=== PATIENT | female | born 2000 ===

== ENCOUNTER → 2018-04-08 | Outpatient (CLI) | payer OTHER ==
[2018-04-09 10:45] LABS: Candida species (DNA Probe) Negative (NEGATIVE); G. vaginalis (DNA Probe) Positive (NEGATIVE); T. vaginalis (DNA Probe) Negative (NEGATIVE)
[2018-04-11 00:10] LABS: CHLAMYDIA TRACHOMATIS, NAA Negative (Negative); NEISSERIA GONORRHOEAE, NAA Negative (Negative)
== END | disposition home or self-care (01) ==
LOC: LAB SHORT 17:30 → LAB EV 17:30
PROVIDERS: Physician Assistant
DX: N93.9 Abnormal uterine and vaginal bleeding, unspecified (principal)
CPT/HCPCS: 87480; 87491; 87510; 87591; 87660

== ENCOUNTER → 2018-09-28 | Outpatient (CLI) | payer OTHER | LOC: LAB 18:52 → LAB SHORT 18:52 | DX: N94.11 Superficial (introital) dyspareunia (principal) | CPT/HCPCS: 87070; 87205 ==

== ENCOUNTER → 2018-11-12 | Outpatient (CLI) | payer OTHER ==
[2018-11-13 07:02] LABS: Candida species (DNA Probe) Negative (NEGATIVE); G. vaginalis (DNA Probe) Negative (NEGATIVE); T. vaginalis (DNA Probe) Negative (NEGATIVE)
== END ==
LOC: LAB SHORT 17:59 → LAB 17:59
PROVIDERS: Registered Nurse Community Health
DX: N94.10 Unspecified dyspareunia (principal); N89.8 Other specified noninflammatory disorders of vagina; R10.2 Pelvic and perineal pain; Z91.410 Personal history of adult physical and sexual abuse
CPT/HCPCS: 87480; 87510; 87660

== ENCOUNTER → 2019-02-09 | Outpatient (CLI) | payer OTHER | LOC: LAB 19:25 → LAB SHORT 19:25 | DX: L02.214 Cutaneous abscess of groin (principal) | CPT/HCPCS: 87070; 87075; 87205 ==

== ENCOUNTER → 2022-08-06 | Outpatient (CLI) | payer OTHER ==
[2022-08-09 02:09] LABS: CHLAMYDIA TRACHOMATIS, NAA Negative (Negative)
== END | disposition home or self-care (01) ==
LOC: LAB SHORT 12:00 → LAB 12:00
PROVIDERS: Registered Nurse Community Health
DX: Z34.81 Encounter for supervision of other normal pregnancy, first trimester (principal)
CPT/HCPCS: 87491; 87591; G0145

== ENCOUNTER → 2022-12-11 | Outpatient (CLI) | payer OTHER ==
[2022-12-11 14:21] LABS: Hematocrit 33.9 % (33.0-51.0); Hemoglobin 11.7 g/dL (11.5-16.0)
== END | disposition home or self-care (01) ==
LOC: LAB 12:47 → LAB SHORT 12:47
PROVIDERS: Registered Nurse Community Health
DX: Z34.82 Encounter for supervision of other normal pregnancy, second trimester (principal)
CPT/HCPCS: 82950; 85014; 85018

== ENCOUNTER → 2023-02-05 | Outpatient (CLI) | payer OTHER | END | disposition home or self-care (01) | LOC: LAB SHORT 10:45 → LAB 10:45 | DX: Z34.93 Encounter for supervision of normal pregnancy, unspecified, third trimester (principal) | CPT/HCPCS: 87081; 87150 ==

== ENCOUNTER 2023-02-20 23:50 | Inpatient (IN) | payer OTHER ==
[~2023-02-20] VITALS: Ht 157.5 cm; Wt 75.0 kg
[2023-02-21] VITALS (34 sets, daily range): BP systolic 97–152; BP diastolic 55–85
[2023-02-21 03:15] LABS: BASOPHILS ABSOLUTE AUTO 0.05 K/mm3 (0.00-0.23); BASOPHILS PERCENT AUTO 0 % (0-2); EOSINOPHILS ABSOLUTE AUTO 0.26 K/mm3 (0.00-0.68); EOSINOPHILS PERCENT AUTO 2 % (0-6); Hematocrit 30.1 % (33.0-51.0); Hemoglobin 10.3 g/dL (11.5-16.0); IMMATURE GRAN ABSOLUTE AUTO 0.21 K/mm3 (0.00-0.10); IMMATURE GRAN PERCENT AUTO 2 % (0-1); LYMPHOCYTES ABSOLUTE AUTO 1.87 K/mm3 (0.84-5.20); LYMPHOCYTES PERCENT AUTO 16 % (21-46); MONOCYTES ABSOLUTE AUTO 0.76 K/mm3 (0.16-1.47); MONOCYTES PERCENT AUTO 6 % (4-13); Mean Corpuscular HGB 30.6 pg (26.0-34.0); Mean Corpuscular HGB Conc 34.2 g/dL (31.5-36.5); Mean Corpuscular Volume 89 fL (80-100); Mean Platelet Volume 11.1 fL (9.1-12.4); NEUTROPHILS ABSOLUTE AUTO 8.76 K/mm3 (1.96-9.15); NEUTROPHILS PERCENT AUTO 74 % (41-73); Platelet Count 211 K/mm3 (150-400); RDW Coefficient Variation 12.6 % (11.7-14.2); RDW Standard Deviation 41.1 fL (35.1-46.3); Red Blood Cell Count 3.37 M/mm3 (3.80-5.20); White Blood Cell Count 11.91 K/mm3 (4.00-11.30)
[2023-02-21] MEDS ORDERED: MINIPRESS1 MG PO (03:52)
[2023-02-21] MEDS ORDERED: FLUO10 PO (03:53)
[2023-02-21] MEDS ORDERED: PRENA1 CHEW TA1.4 MG PO (03:55)
[2023-02-21] MEDS ORDERED: PANT20 PO (03:55)
--- NOTE | 2023-02-22 00:15 | NUR ---
AT 2119, 02/21/23 DURING MEDICATION ADMINISTRATION, QUESTIONED PATIENT IF THE MEDICATIONS MAKE HER SLEEPY. PATIENT STATES " NO, THE MEDICATIONS DOES NOT MAKE ME SLEEPY." OFFERED PATIENT IF I CAN TAKE BABY WITH ME SO SHE CAN GET SOME REST. PATIENT REFUSED AND SHE SAID SHE WASN'T SLEEPY YET AND WANTED TO CUDDLE WITH . TOLD PATIENT THAT IF SHE GETS TIRED TO CALL AND I'LL TAKE CARE OF FOR FEW HOURS AND IF I CAN OFFER DONORS BREASTMILK IF SHE GETS FUZZY SO I DON'T HAVE TO WAKE HER UP. PATIENT STATES "YES, I WILL CALL AND IT'S OKAY TO GIVE HER DONORS BREASTMILK. AROUND, 2154 AFTER I GOT DONE WITH ALL OF MY CHARTING I WAS WALKING TO THE NURSING STATION, I HEARD CRYING. KNOCKED ON THE DOOR AND ASKED IF EVERYTHING IS OKAY. PATIENT STATES " SHE FELL ON THE FLOOR" AND SHE SAID SHE FELL ASLEEP SHE WAS HOLDING . CHECKED WHILE TRYING TO CALM HER DOWN. ASSESSMENTS WERE NORMAL AND CALLED HUAN, CHARGE NURSE. UPDATED KEV MANCILLA AND HUAN TO WHAT HAPPENED.
[2023-02-22 01:06] VITALS: BP 107/52
[2023-02-22 05:11] VITALS: BP 113/56
--- NOTE | 2023-02-22 06:25 | NUR ---
LATE ENTRY: POST FALL DEBRIEF DONE AT BEDSIDE WITH BOTH PARENTS AT 2245. BOTH PARENTS DOZE OFF DURING THIS DISCUSSION AND HAD TO BE AWAKENED TO COMPLETE IT. THEY REQUESTED TO SLEEP AND FEED BABY DONOR MILK SO THEY CAN REST OVERNIGHT WHILE BABY IS MONITORING IN SCN. IRIS COMPLETED.
--- NOTE | 2023-02-22 06:26 | NUR ---
0605: BACK TO ROOM, PROVIDED CONTINUED EDUCATION ON HOSPITAL SAFE SLEEPING POLICY.
[2023-02-22 07:31] LABS: BASOPHILS ABSOLUTE AUTO 0.05 K/mm3 (0.00-0.23); BASOPHILS PERCENT AUTO 0 % (0-2); EOSINOPHILS ABSOLUTE AUTO 0.06 K/mm3 (0.00-0.68); EOSINOPHILS PERCENT AUTO 0 % (0-6); Hematocrit 28.7 % (33.0-51.0); Hemoglobin 9.7 g/dL (11.5-16.0); IMMATURE GRAN ABSOLUTE AUTO 0.14 K/mm3 (0.00-0.10); IMMATURE GRAN PERCENT AUTO 1 % (0-1); LYMPHOCYTES ABSOLUTE AUTO 1.42 K/mm3 (0.84-5.20); LYMPHOCYTES PERCENT AUTO 10 % (21-46); MONOCYTES ABSOLUTE AUTO 0.86 K/mm3 (0.16-1.47); MONOCYTES PERCENT AUTO 6 % (4-13); Mean Corpuscular HGB 30.1 pg (26.0-34.0); Mean Corpuscular HGB Conc 33.8 g/dL (31.5-36.5); Mean Corpuscular Volume 89 fL (80-100); Mean Platelet Volume 11.4 fL (9.1-12.4); NEUTROPHILS ABSOLUTE AUTO 11.42 K/mm3 (1.96-9.15); NEUTROPHILS PERCENT AUTO 82 % (41-73); Platelet Count 199 K/mm3 (150-400); RDW Coefficient Variation 12.5 % (11.7-14.2); Red Blood Cell Count 3.22 M/mm3 (3.80-5.20); White Blood Cell Count 13.95 K/mm3 (4.00-11.30)
[2023-02-22 08:26] VITALS: BP 131/67
[2023-02-22 11:19] VITALS: BP 130/77
[2023-02-22 16:23] VITALS: BP 142/85
--- NOTE | 2023-02-22 16:27 | NUR ---
pt ok with going to boarder status, working on cert paper work
[2023-02-22 19:24] VITALS: BP 130/71
--- NOTE | 2023-02-22 22:09 | NUR ---
2130: PRINTED DISCHARGE INSTRUCTIONS, REVIEWED WITH PATIENT AND ANSWERED ADDITIONAL QUESTIONS AND CONCERNS. DISCHARGE TO BOARDER. VSS
== END 2023-02-22 21:30 | disposition home or self-care (01) | DRG 807 ==
LOC: OBS 23:50 → BC 02-21 00:04 → OBS 02-21 02:44 → BC 02-21 02:47
PROVIDERS: Family Medicine; ADMIT Registered Nurse Community Health
PROC: 10E0XZZ Delivery of Products of Conception, External Approach (ICD-10-PCS; principal; 2023-02-21)
PROC: 10D17Z9 Manual Extraction of Products of Conception, Retained, Via Natural or Artificial Opening (ICD-10-PCS; 2023-02-21)
PROC: 10907ZC Drainage of Amniotic Fluid, Therapeutic from Products of Conception, Via Natural or Artificial Opening (ICD-10-PCS; 2023-02-21)
PROC: 4A1HXCZ Monitoring of Products of Conception, Cardiac Rate, External Approach (ICD-10-PCS; 2023-02-21)
DX: O99.62 Diseases of the digestive system complicating childbirth (principal); Z37.0 Single live birth; K21.9 Gastro-esophageal reflux disease without esophagitis; Z88.2 Allergy status to sulfonamides; O99.344 Other mental disorders complicating childbirth; F32.A Depression, unspecified; F41.9 Anxiety disorder, unspecified; F43.10 Post-traumatic stress disorder, unspecified; Z87.891 Personal history of nicotine dependence; Z3A.38 38 weeks gestation of pregnancy; O73.1 Retained portions of placenta and membranes, without hemorrhage; Z88.8 Allergy status to other drugs, medicaments and biological substances; O99.824 Streptococcus B carrier state complicating childbirth
CPT/HCPCS: 36415; 51702; 59025; 81003; 85025; 86850; 86900; 86901; 88307; A9270; J0290; J0690; J2590; J3010; J7120

== ENCOUNTER → 2024-01-20 | Outpatient (CLI) | payer OTHER ==
[~2024-01-20] MED LIST: FLUO10 PO; MINIPRESS1 MG PO; PANT20 PO; PRENA1 CHEW TA1.4 MG PO
[2024-01-20 18:25] LABS: Free Thyroxine 1.03 ng/dL (0.70-1.60)
[2024-01-20 18:26] LABS: Thyroid Stimulating Hormone 0.521 uIU/mL (0.360-4.800); Triiodothyronine, Free 2.43 pg/mL (2.18-3.98)
== END | disposition home or self-care (01) ==
LOC: LAB 16:11 → LAB SHORT 16:11
PROVIDERS: Nurse Practitioner Obstetrics & Gynecology
DX: E05.90 Thyrotoxicosis, unspecified without thyrotoxic crisis or storm (principal)
CPT/HCPCS: 84439; 84443; 84481

== ENCOUNTER → 2024-05-25 | Outpatient (CLI) | payer OTHER | END | disposition home or self-care (01) | LOC: LAB SHORT 18:59 → LAB 18:59 | DX: N89.8 Other specified noninflammatory disorders of vagina (principal) | CPT/HCPCS: 87070; 87077; 87147; 87186; 87205 ==